=== PATIENT | male | born 1980 | race African-American/Black ===

== ENCOUNTER 2016-07-09 18:38 | Emergency (ER) | payer OTHER ==
[~2016-07-09] VITALS: Ht 172.7 cm; Wt 140.5 kg
[~2016-07-09 18:38] MED LIST: CHERATUSSIN AC473 ML PO; HYCODAN SYRUP480 ML PO; LEVAQUIN500 MG PO; PULMICORT FLEX90 MCG IH; TYLENOL REGULA325 MG PO; TYLENOL W/COD1 COMBO PO; TYLENOL WITH C1 EACH PO; VENTOLIN HFA18 GM IH; ZITHROMAX TRI-500 MG PO
[2016-07-09 19:40] LABS: HEMATOCRIT 47.9 % (38.0-50.0); MCH 32.9 PG (29.0-34.0); MCHC 33.6 G/DL (30.0-36.0); MEAN PLAT.VOLUME 8.7 uM^3 (9.0-12.4); PLATELET COUNT 283 K/uL (156-360); RBC DIS.WIDTH-CV 13.2 % (11.8-14.6); RBC DIS.WIDTH-SD 47.6 % (39-53); RED BLOOD COUNT 4.89 M/uL (4.00-5.50); WHITE BLOOD COUNT 10.3 K/uL (4.1-10.2)
[2016-07-09 19:57] LABS: CHLORIDE 104 mEq/L (99-109); POTASSIUM 4.3 mEq/L (3.7-5.4); SODIUM 141 mEq/L (136-147)
[2016-07-09 20:00] LABS: GLUCOSE 100 mg/dL (70-99)
[2016-07-09 20:01] LABS: ANION GAP 14 MEQ/L (2-14)
[2016-07-09 20:02] LABS: TOTAL BILIRUBIN 0.7 mg/dL (0.0-1.0)
[2016-07-09 20:03] LABS: ALKALINE PHOSPHATASE 94 IU/L (3-129); GFR ESTIMATE (CALCULATED) > 59 mL/min/
[2016-07-09 20:05] LABS: UREA NITROGEN (BUN) 11 mg/dL (9-23)
[2016-07-09 20:41] LABS: LIPASE 15 U/L (1.0-51.0)
[2016-07-09 20:46] LABS: ADD MIUA? YES; BILIRUBIN NEGATIVE; BLOOD SMALL; COLOR YELLOW ((YELLOW)); GLUCOSE (STRIP) NEGATIVE; KETONES NEGATIVE; LEUKOCYTES NEGATIVE; NITRITE NEGATIVE; PROTEIN (STRIP) 30; SPECIFIC GRAVITY 1.023 (1.000-1.030); UROBILINOGEN 0.2 MG/DL (0.2-1.0)
[2016-07-09 20:55] LABS: BACTERIA RARE /HPF; EPITHELIAL CELLS RARE /HPF; MUCUS TRACE /LPF; RED BLOOD CELLS 0-5 /HPF (0-5); UCUL ADDED? NO; WHITE BLOOD CELLS 0-5 /HPF (0-5)
[2016-07-09] MEDS ORDERED: ZOFRAN ODT4 MG PO (21:24)
[2016-07-09] MEDS ORDERED: BENTYL10 MG PO (21:24)
[2016-07-09 21:40] VITALS: BP 162/97
== END 2016-07-09 21:41 | disposition home or self-care (01) ==
LOC: EME 18:38
DX: R10.13 Epigastric pain (principal); R10.9 Unspecified abdominal pain; R11.2 Nausea with vomiting, unspecified; J45.909 Unspecified asthma, uncomplicated; I10 Essential (primary) hypertension; Z88.1 Allergy status to other antibiotic agents; Z88.6 Allergy status to analgesic agent; F17.200 Nicotine dependence, unspecified, uncomplicated
CPT/HCPCS: 74176; 80053; 81003; 83690; 85027; 99281; 99284; J2550

== ENCOUNTER 2016-08-21 21:48 | Emergency (ER) | payer OTHER ==
[~2016-08-21] VITALS: Ht 172.7 cm; Wt 145.8 kg
[~2016-08-21 21:48] MED LIST changes: +BENTYL10 MG PO; +ZOFRAN ODT4 MG PO
[2016-08-21] MEDS ORDERED: NAPROSYN500 MG PO (22:41)
[2016-08-21 23:00] VITALS: BP 149/101
== END 2016-08-21 23:11 | disposition home or self-care (01) ==
LOC: EME 21:48
DX: M79.605 Pain in left leg (principal); M79.89 Other specified soft tissue disorders; J45.909 Unspecified asthma, uncomplicated; I10 Essential (primary) hypertension; G47.30 Sleep apnea, unspecified; F17.200 Nicotine dependence, unspecified, uncomplicated
CPT/HCPCS: 80048; 85027; 85610; 93971; 99281; 99283

== ENCOUNTER 2016-08-30 21:40 | Inpatient (IN) | payer OTHER ==
[~2016-08-30] VITALS: Ht 172.7 cm; Wt 146.9 kg
[~2016-08-30 21:40] MED LIST changes: +NAPROSYN500 MG PO
[2016-08-30] MEDS ORDERED: DAILY VALUE1 EACH PO (22:17)
[2016-08-30 22:29] LABS: HEMATOCRIT 44.2 % (38.0-50.0); MCHC 32.6 G/DL (30.0-36.0); MCV 101.4 FL (86-99); PLATELET COUNT 249 K/uL (156-360); RBC DIS.WIDTH-CV 13.7 % (11.8-14.6); RBC DIS.WIDTH-SD 51.9 % (39-53); RED BLOOD COUNT 4.36 M/uL (4.00-5.50); WHITE BLOOD COUNT 8.6 K/uL (4.1-10.2)
[2016-08-30 22:42] LABS: CHLORIDE 107 mEq/L (99-109); POTASSIUM 3.9 mEq/L (3.7-5.4); SODIUM 141 mEq/L (136-147)
[2016-08-30 22:43] LABS: GLUCOSE 121 mg/dL (70-99)
[2016-08-30 22:45] LABS: ANION GAP 11 MEQ/L (2-14)
[2016-08-30 22:47] LABS: GFR ESTIMATE (CALCULATED) > 59 mL/min/
[2016-08-30 22:48] LABS: UREA NITROGEN (BUN) 13 mg/dL (9-23)
[2016-08-31 00:01] LABS: INFLUENZA A VIRAL ANTIGEN NEGATIVE; INFLUENZA B VIRAL ANTIGEN NEGATIVE
[2016-08-31 03:54] VITALS: BP 125/71
[2016-08-31 08:43] VITALS: BP 132/72
[2016-08-31 11:47] VITALS: BP 160/76
[2016-08-31 15:00] VITALS: BP 161/89
[2016-08-31 19:23] VITALS: BP 146/75
[2016-08-31 23:47] VITALS: BP 147/78
[2016-09-01 03:41] VITALS: BP 149/81
[2016-09-01 06:39] LABS: HEMATOCRIT 43.2 % (38.0-50.0); MCH 33.3 PG (29.0-34.0); MCHC 32.6 G/DL (30.0-36.0); MCV 102.1 FL (86-99); MEAN PLAT.VOLUME 9.7 uM^3 (9.0-12.4); NRBC (%) 0.1 /100 WBC (0-0); PLATELET COUNT 270 K/uL (156-360); RBC DIS.WIDTH-CV 13.5 % (11.8-14.6); RED BLOOD COUNT 4.23 M/uL (4.00-5.50)
[2016-09-01 06:47] LABS: WHITE BLOOD COUNT 13.6 K/uL (4.1-10.2)
[2016-09-01 07:03] LABS: ANION GAP 11 MEQ/L (2-14); CHLORIDE 101 MEQ/L (99-109); GFR ESTIMATE (CALCULATED) > 59 mL/min/; POTASSIUM 4.6 MEQ/L (3.7-5.4); SAMPLE HEMOLYSIS CHECK 0; SAMPLE ICTERIC CHECK 0; SAMPLE LIPEMIA CHECK 0; SODIUM 136 MEQ/L (136-147); UREA NITROGEN (BUN) 14 mg/dL (9-23)
[2016-09-01 07:04] LABS: GLUCOSE 242 mg/dL (70-99)
[2016-09-01 07:06] VITALS: BP 164/95
[2016-09-01] MEDS ORDERED: Robitussin AC,Tussi- PO (07:25)
[2016-09-01] MEDS ORDERED: AZITHROMYCIN500 M1 PO (07:25)
[2016-09-01] MEDS ORDERED: PREDNISONE5 M1 PO (07:25)
[2016-09-01] MEDS ORDERED: METFORMIN HCL500 M4 PO (07:25)
[2016-09-01] MEDS ORDERED: ATORVASTATIN CA10 MG PO (07:28)
== END 2016-09-01 09:22 | disposition home or self-care (01) | DRG 202 ==
LOC: EME 21:40 → EDOF 08-31 02:36 → 5WEST 08-31 03:38 → 2EAST 08-31 14:28
PROVIDERS: Emergency Medicine; Hospitalist
DX: J45.901 Unspecified asthma with (acute) exacerbation (principal); Z68.42 Body mass index [BMI] 45.0-49.9, adult; J20.9 Acute bronchitis, unspecified; E66.01 Morbid (severe) obesity due to excess calories; G47.33 Obstructive sleep apnea (adult) (pediatric); R73.9 Hyperglycemia, unspecified; I10 Essential (primary) hypertension; R09.02 Hypoxemia; I27.2 Other secondary pulmonary hypertension; F17.210 Nicotine dependence, cigarettes, uncomplicated; Z88.0 Allergy status to penicillin; Z82.5 Family history of asthma and other chronic lower respiratory diseases; Z88.6 Allergy status to analgesic agent
CPT/HCPCS: 71020; 80048; 83036; 83880; 85027; 87502; 93005; 93970; 94640; 94640 76; 94644; 99202; 99281; 99285; J1644; J1885; J2930; J7030

== ENCOUNTER 2017-01-13 07:37 | Emergency (ER) | payer OTHER ==
[~2017-01-13] VITALS: Ht 172.7 cm; Wt 142.8 kg
[~2017-01-13 07:37] MED LIST changes: +ATORVASTATIN CA10 MG PO; +AZITHROMYCIN500 M1 PO; +DAILY VALUE1 EACH PO; +METFORMIN HCL500 M4 PO; +PREDNISONE5 M1 PO; +Robitussin AC,Tussi- PO
[2017-01-13] MEDS ORDERED: TESSALON200 MG PO (09:36)
[2017-01-13] MEDS ORDERED: GUAIFENESIN600 M1 PO (09:36)
[2017-01-13] MEDS ORDERED: ZYRTEC10 M3 PO (09:36)
[2017-01-13] MEDS ORDERED: FLONASE16 G1 BOTH NARES (09:36)
[2017-01-13] MEDS ORDERED: ROBAFEN DM CGH118 ML PO (09:36)
[2017-01-13] MEDS ORDERED: DELTASONE20 M1 PO (09:36)
[2017-01-13 10:06] VITALS: BP 152/96
[2017-01-16] MEDS ORDERED: ROXICODONE5 MG PO (14:00)
== END 2017-01-13 10:21 | disposition home or self-care (01) ==
LOC: EME 07:37
DX: J45.901 Unspecified asthma with (acute) exacerbation (principal); J06.9 Acute upper respiratory infection, unspecified; J30.2 Other seasonal allergic rhinitis; F17.210 Nicotine dependence, cigarettes, uncomplicated; Z71.6 Tobacco abuse counseling; G47.30 Sleep apnea, unspecified; Z99.89 Dependence on other enabling machines and devices; I10 Essential (primary) hypertension; Z88.1 Allergy status to other antibiotic agents; Z88.6 Allergy status to analgesic agent
CPT/HCPCS: 71020; 93005; 94640; 99281; 99284

== ENCOUNTER 2017-01-26 09:39 | Day surgery (SDC) | payer OTHER ==
[~2017-01-26 09:39] MED LIST changes: +DELTASONE20 M1 PO; +FLONASE16 G1 BOTH NARES; +GUAIFENESIN600 M1 PO; +ROBAFEN DM CGH118 ML PO; +ROXICODONE5 MG PO; +TESSALON200 MG PO; +ZYRTEC10 M3 PO
[2017-01-26] MEDS ORDERED: PROVENTIL,2.5 MG/3 M IH (10:13)
== END 2017-01-26 15:25 | disposition home or self-care (01) ==
LOC: PAIN 09:39 → SDC 10:00 → PAIN 10:00
DX: M47.26 Other spondylosis with radiculopathy, lumbar region (principal); F17.200 Nicotine dependence, unspecified, uncomplicated; G89.29 Other chronic pain; M41.9 Scoliosis, unspecified; M48.061 Spinal stenosis, lumbar region without neurogenic claudication; J45.909 Unspecified asthma, uncomplicated; E11.9 Type 2 diabetes mellitus without complications; E66.01 Morbid (severe) obesity due to excess calories; Z68.42 Body mass index [BMI] 45.0-49.9, adult; G47.33 Obstructive sleep apnea (adult) (pediatric); Z88.1 Allergy status to other antibiotic agents; Z88.6 Allergy status to analgesic agent
CPT/HCPCS: J1030; J2250; J3010; S0020

== ENCOUNTER 2017-02-02 13:57 | Day surgery (SDC) | payer OTHER ==
[~2017-02-02] VITALS: Ht 172.7 cm; Wt 133.8 kg
[~2017-02-02 13:57] MED LIST changes: +PROVENTIL,2.5 MG/3 M IH
== END 2017-02-02 15:50 | disposition home or self-care (01) ==
LOC: PAIN 13:57
DX: M47.26 Other spondylosis with radiculopathy, lumbar region (principal); G89.29 Other chronic pain; E66.01 Morbid (severe) obesity due to excess calories; Z68.42 Body mass index [BMI] 45.0-49.9, adult; F17.200 Nicotine dependence, unspecified, uncomplicated; M41.9 Scoliosis, unspecified; M48.061 Spinal stenosis, lumbar region without neurogenic claudication; F41.9 Anxiety disorder, unspecified; J45.909 Unspecified asthma, uncomplicated; E11.9 Type 2 diabetes mellitus without complications; G47.33 Obstructive sleep apnea (adult) (pediatric); M51.16 Intervertebral disc disorders with radiculopathy, lumbar region; Z88.0 Allergy status to penicillin; Z88.6 Allergy status to analgesic agent
CPT/HCPCS: J1030; J2250; J3010; S0020

== ENCOUNTER 2017-04-01 22:30 | Emergency (ER) | payer OTHER ==
[~2017-04-01] VITALS: Ht 172.7 cm; Wt 148.9 kg
[2017-04-01 23:30] LABS: HEMATOCRIT 41.3 % (38.0-50.0); MCH 33.5 PG (29.0-34.0); MCHC 33.9 G/DL (30.0-36.0); MCV 98.8 FL (86-99); MEAN PLAT.VOLUME 8.6 uM^3 (9.0-12.4); PLATELET COUNT 246 K/uL (156-360); RBC DIS.WIDTH-CV 13.6 % (11.8-14.6); RBC DIS.WIDTH-SD 49.1 % (39-53); RED BLOOD COUNT 4.18 M/uL (4.00-5.50); WHITE BLOOD COUNT 8.8 K/uL (4.1-10.2)
[2017-04-01 23:39] LABS: CHLORIDE 105 mEq/L (99-109); SODIUM 141 mEq/L (136-147)
[2017-04-01 23:41] LABS: GLUCOSE 148 mg/dL (70-99)
[2017-04-01 23:43] LABS: ANION GAP 11 MEQ/L (2-14)
[2017-04-01 23:45] LABS: GFR ESTIMATE (CALCULATED) > 59 mL/min/
[2017-04-01 23:46] LABS: UREA NITROGEN (BUN) 12 mg/dL (9-23)
[2017-04-01 23:52] LABS: TROP-I INTERPRETATION NEGATIVE; TROPONIN-I < 0.01 ng/mL (0.0-0.30)
[2017-04-02] MEDS ORDERED: HYCODAN SYRUP480 ML PO (00:11)
[2017-04-02] MEDS ORDERED: PREDNISONE20 MG PO (00:11)
[2017-04-02] MEDS ORDERED: DUONEB 2.5-0.5 M3 ML AEROSOL (00:14)
[2017-04-02 00:25] VITALS: BP 189/94
== END 2017-04-02 00:25 | disposition home or self-care (01) ==
LOC: EME 22:30
DX: J45.909 Unspecified asthma, uncomplicated (principal); I10 Essential (primary) hypertension; R11.0 Nausea; F17.200 Nicotine dependence, unspecified, uncomplicated
CPT/HCPCS: 71020; 80048; 84484; 85027; 93005; 94640; 99281; 99284; J7512

== ENCOUNTER 2017-08-22 11:33 | Emergency (ER) | payer OTHER ==
[~2017-08-22] VITALS: Ht 172.7 cm; Wt 150.2 kg
[~2017-08-22 11:33] MED LIST changes: +DUONEB 2.5-0.5 M3 ML AEROSOL; +PREDNISONE20 MG PO
[2017-08-22 12:38] LABS: HEMATOCRIT 42.6 % (38.0-50.0); HEMOGLOBIN 14.6 G/DL (12.5-16.6); MCH 33.9 PG (29.0-34.0); MCHC 34.3 G/DL (30.0-36.0); MCV 98.8 FL (86-99); PLATELET COUNT 277 K/uL (156-360); RBC DIS.WIDTH-CV 12.5 % (11.8-14.6); RBC DIS.WIDTH-SD 45.4 % (39-53); RED BLOOD COUNT 4.31 M/uL (4.00-5.50)
[2017-08-22 12:47] LABS: CHLORIDE 105 mEq/L (99-109); SODIUM 141 mEq/L (136-147)
[2017-08-22 12:49] LABS: GLUCOSE 164 mg/dL (70-99)
[2017-08-22 12:53] LABS: CREATININE 1.2 mg/dL (0.6-1.3); GFR ESTIMATE (CALCULATED) > 59 mL/min/ (58.99-99999); UREA NITROGEN (BUN) 15 mg/dL (9-23)
[2017-08-22 14:56] LABS: D-DIMER ELISA < 150.00 ng/mLDDU (<230)
[2017-08-22] MEDS ORDERED: PREDNISONE20 MG PO (15:46)
[2017-08-22] MEDS ORDERED: ZITHROMAX250 MG PO (15:46)
[2017-08-22] MEDS ORDERED: VENTOLIN HFA18 GM IH (15:46)
[2017-08-22 16:16] VITALS: BP 187/109
== END 2017-08-22 16:17 | disposition home or self-care (01) ==
LOC: EME 11:33
DX: R05 Cough (principal); J34.89 Other specified disorders of nose and nasal sinuses; F17.200 Nicotine dependence, unspecified, uncomplicated; J45.909 Unspecified asthma, uncomplicated; I10 Essential (primary) hypertension; F32.9 Major depressive disorder, single episode, unspecified; Z88.0 Allergy status to penicillin; Z88.6 Allergy status to analgesic agent; G47.30 Sleep apnea, unspecified
CPT/HCPCS: 71046; 80048; 85027; 85379; 94640; 99281; 99284

== ENCOUNTER 2017-12-24 07:26 | Day surgery (SDC) | payer OTHER ==
[~2017-12-24] VITALS: Ht 172.7 cm; Wt 133.8 kg
[~2017-12-24 07:26] MED LIST changes: +HYZAAR 100-21 TABLET PO; +MOBIC15 MG PO; +PERCOCET 5/31 TABLET PO; +ZANAFLEX2 M1 PO; +ZITHROMAX250 MG PO
== END 2017-12-24 10:30 | disposition home or self-care (01) ==
LOC: PAIN 07:26 → SDC 08:00 → PAIN 08:00
DX: M47.816 Spondylosis without myelopathy or radiculopathy, lumbar region (principal); M54.16 Radiculopathy, lumbar region; M48.061 Spinal stenosis, lumbar region without neurogenic claudication; G89.29 Other chronic pain; M62.838 Other muscle spasm; F17.200 Nicotine dependence, unspecified, uncomplicated
CPT/HCPCS: J1030; J2250; J3010; S0020